=== PATIENT | female | born 1990 | race Caucasian/White ===

== ENCOUNTER → 2020-05-19 | Outpatient (CLI) | payer MEDICAID ==
[~2020-05-19] MED LIST: ADMELOG SO100 UNIT/1 SQ; ASPIRIN 81M81 MG/TA2 PO; CALCIUM CARBON650 M2; INSHUMULINN SQ; MOTRIN 800800 MG/TAB PO; PRENATAL MVI; VALTREX 50500 MG/TAB PO
== END ==
LOC: DIA.ED
DX: O24.419 Gestational diabetes mellitus in pregnancy, unspecified control (principal); Z79.4 Long term (current) use of insulin
CPT/HCPCS: G0108

== ENCOUNTER → 2020-06-22 | Outpatient (CLI) | payer MEDICAID | LOC: ZCOL.LAB 08:48 | DX: Z20.822 Contact with and (suspected) exposure to COVID-19 (principal) ==

== ENCOUNTER 2020-06-24 07:15 | Inpatient (IN) | payer MEDICAID ==
[2020-06-24] VITALS (42 sets, daily range): BP systolic 96–147; BP diastolic 51–733; PULSE 74–111; TEMP 97.4–98.7
[~2020-06-24] VITALS: Ht 167.6 cm; Wt 112.7 kg
--- NOTE | 2020-06-24 07:25 | NUR ---
0725- 39.0, G1L0 arrives on unit for scheduled IOL. Ambulatory to LDR5 with significant other. Oriented to room and plan of care. Patient denies any LOF, or VB. Reports normal movement, and irregular contractions. Changes into clean gown. 0740- This RN to bedside. Patient states she has not taken her insulin today. Per Dr. Dougherty, patient to take home insulin as directed. FSBS per patient 135. EFM explained and placed. VS obtained. Assessment completed. Consent forms explained and signed. 0745- IV to left forearm. Routine labs obtained via IV site. IVF infusing. 0753- Dr. Dougherty to bedside and discusses POC with patient and SO. AROM at this by Dr. Dougherty. No fluid noted with exam. Will continue to monitor. SVE by provider /3. Camila care and patient wedge left. 0810- Pitocin explained and started at 2mu per orders.
[2020-06-24 08:05] LABS: BASO % 0.2 % (0.0-2.0); EOS % 0.3 % (0-4.0); GRAN # 12.1 (1.4-6.5); GRAN % 77.1 % (42.2-75.2); HEMATOCRIT 41.4 % (37.0-47.0); HEMOGLOBIN 13.5 g/dl (12.5-16.0); LYMPH # 2.4 (1.2-3.4); LYMPH % 15.5 % (20.0-51.0); MEAN CELL VOLUME 89 fl (80.0-100.0); MEAN CORPUSCULAR HEMOGLOBIN 29 pg (27.0-31.0); MEAN CORPUSCULAR HGB CONC 33 g/dl (33.0-37.0); MEAN PLATELET VOLUME 11.9 fl (7.4-10.4); MONO # 0.9 (0.1-0.6); PLATELET COUNT 330 K/mm3 (130-400); RED BLOOD COUNT 4.67 M/mm3 (4.10-5.30); REDCELL DISTRIBUTION WIDTH-CV 15.2 % (11.5-14.5)
[2020-06-24] MEDS ORDERED: CALCIUM CARBON650 M2 (08:29)
[2020-06-24] MEDS ORDERED: ASPIRIN 81M81 MG/TA2 PO (08:29)
[2020-06-24] MEDS ORDERED: PRENATAL MVI (08:30)
[2020-06-24] MEDS ORDERED: VALTREX 50500 MG/TAB PO (08:30)
[2020-06-24] MEDS ORDERED: ADMELOG SO100 UNIT/1 SQ ×2 (08:31→08:32)
[2020-06-24] MEDS ORDERED: INSHUMULINN SQ ×2 (08:33→08:34)
--- NOTE | 2020-06-24 10:00 | NUR ---
1000- Patient requesting epidural. IVF bolus initiated. Delmer Jovel [employer] on unit and notified. 1005- C. Med [employer] to bedside for epidural placement. Patient assisted to edge of bed. FHR difficult to trace due to maternal position and habitus. RN remains at bedside adj. EFM. 1016- Epidural placed and test dose at this time by [employer]. See anesthesia record. 1021- Patient wedge left. EFM adjusted and tracing well. Plan of care and safety precautions reviewed with patient who verbalizes understanding. FSBS 65. Patient reports LÓPEZ, and states she feels like her blood sugar is low. Popcicle provided. 1030- Blood pressure noted to be 97/53, and 96/51. IVF bolus continues. 1043- Dr. Dougherty updated on patient. See physician notification.
--- NOTE | 2020-06-24 11:45 | NUR ---
Ctx tracing intermittently. RN at bedside adj. toco.
--- NOTE | 2020-06-24 13:40 | NUR ---
Patient reports lower abdominal pain/pressure. C. Med TURF FARMER to bedside to evaluate. See anesthesia record.
--- NOTE | 2020-06-24 13:45 | NUR ---
Ctx tracing intermittently, RN at bedside adj. toco.
--- NOTE | 2020-06-24 14:34 | NUR ---
1434- Patient reports increased pressure and urge to push. SVE C/0. Dr. Dougherty updated. See physician notification. RN remains at bedside with patient. 1444- Dr. Dougherty to bedside. Patiet prepped for delivery. Patient instructed on pushing with contractions. 1454- Spontaneous vaginal delivery of viable female . Cord clamped x2 and cut by father of . To mother's chest where dried and stimulated. Care of assumed by Nieves Sepulveda RN. Pitocin paused. 1457- Spontaneous and intact delivery of placenta. Pitocin resumed at 333ml/hr. 2nd degree perineal laceration repaired by Dr. Dougherty. Camila care provided pads changed, and ice pack to perineum. 1500- Fundus firm, midline, and bleeding minimal. Plan of care and safety precautions reviewed with patient and spouse who verbalize understanding. See doctor dictation, anesthesia record, and nurses notes.
--- NOTE | 2020-06-24 17:54 | NUR ---
FHR tracing intermittently due to maternal habitus and pushing efforts. This RN at bedside adj. EFM. Dr. Dougherty at bedside pushing with patient.
[2020-06-25] VITALS: BP 114/72; PULSE 80; TEMP 99
--- NOTE | 2020-06-25 06:39 | NUR ---
BEDSIDE REPORT REFUSED. REPORT RECEIVED FROM OFF GOING RN, RAUL Arguelles. CARE TAKEN OVER BY THIS RN.
[2020-06-25] MEDS ORDERED: MOTRIN 800800 MG/TAB PO (08:05)
[2020-06-25 08:08] VITALS: BP 125/76; PULSE 97; TEMP 98.5
--- NOTE | 2020-06-25 09:08 | NUR ---
Initial visit; Patient thanked Trucksmith for offering congratulations and God's blessings for the of her daughter. Trucksmith thanked family for choosing [facility].
--- NOTE | 2020-06-25 11:10 | NUR ---
PATIENT C/O FEELING LIKE HER BLOOD SUGAR WAS LOW. BLOOD GLUCOSE CHECKED AND NOTED TO BE 63. ORANGE JUICE PROVIDED AND ENCOURAGED PATIENT TO DRINK, ALSO ENCOURAGED TO ORDER LUNCH. UNDERSTANDING VERBALIZED.
[2020-06-25 16:49] VITALS: BP 115/74; PULSE 85; TEMP 97.5
== END 2020-06-25 18:05 | disposition home or self-care (01) | DRG 807 ==
LOC: OB 07:15 → LDR 07:15 → OB 08:56
PROVIDERS: ADMIT Obstetrics & Gynecology
PROC: 10E0XZZ Delivery of Products of Conception, External Approach (ICD-10-PCS; principal; 2020-06-24)
PROC: 0KQM0ZZ Repair Perineum Muscle, Open Approach (ICD-10-PCS; 2020-06-24)
PROC: 10907ZC Drainage of Amniotic Fluid, Therapeutic from Products of Conception, Via Natural or Artificial Opening (ICD-10-PCS; 2020-06-24)
DX: O24.424 Gestational diabetes mellitus in childbirth, insulin controlled (principal); Z37.0 Single live birth; O99.334 Smoking (tobacco) complicating childbirth; F17.200 Nicotine dependence, unspecified, uncomplicated; O70.1 Second degree perineal laceration during delivery; Z3A.39 39 weeks gestation of pregnancy
CPT/HCPCS: J2590; J2795; J7030; J7120

== ENCOUNTER → 2021-08-01 | Outpatient (CLI) | payer MEDICAID | LOC: DIA.ED 08:10 → DIA.EDTELE 08:14 → DIA.ED 10:30 | DX: O24.419 Gestational diabetes mellitus in pregnancy, unspecified control (principal); Z79.4 Long term (current) use of insulin | CPT/HCPCS: G0108 ==

== ENCOUNTER → 2021-08-29 | Outpatient (CLI) | payer MEDICAID | LOC: DIA.EDTELE 10:47 | DX: O24.419 Gestational diabetes mellitus in pregnancy, unspecified control (principal); Z3A.00 Weeks of gestation of pregnancy not specified | CPT/HCPCS: G0108 ==

== ENCOUNTER → 2021-09-04 | Outpatient (CLI) | payer MEDICAID ==
[~2021-09-04] VITALS: Ht 165.1 cm; Wt 100.9 kg
[2021-09-04 21:00] VITALS: TEMP 98.3
[2021-09-04 21:15] VITALS: BP 120/69; PULSE 86; TEMP 98.4
== END ==
LOC: LDRO 20:45
DX: Z34.90 Encounter for supervision of normal pregnancy, unspecified, unspecified trimester (principal); Z3A.00 Weeks of gestation of pregnancy not specified

== ENCOUNTER 2021-09-22 06:24 | Inpatient (IN) | payer MEDICAID ==
[~2021-09-22] VITALS: Ht 167.6 cm; Wt 100.0 kg
[2021-09-22] VITALS (17 sets, daily range): BP systolic 97–147; BP diastolic 52–85; PULSE 66–109; TEMP 97.6–98.1
--- NOTE | 2021-09-22 06:35 | NUR ---
0635 PATIENT ARRIVED ON UNIT. CHANGED INTO GOWN. 0643 PATIENT PLACED IN EXTERNAL MONITORS. 0655 IV PLACED AND BLOOD DRAWN
--- NOTE | 2021-09-22 07:15 | NUR ---
0701 PATIENT UP TO BATHROOM. PLACED BACK ON EF AT 0711. MOMENT OF DIFFICULT TRACING. RN AT BEDSIDE.
[2021-09-22 07:19] LABS: BASO % 0.3 % (0.0-2.0); EOS # 0.1 K/mm3 (0.0-0.7); EOS % 0.4 % (0.0-4.0); GRAN # 11.5 K/mm3 (1.4-6.5); HEMATOCRIT 37.3 % (37.0-47.0); HEMOGLOBIN 12.2 g/dl (12.5-16.0); LYMPH # 3.1 K/mm3 (1.2-3.4); LYMPH % 19.6 % (20.0-51.0); MEAN CELL VOLUME 90 fl (80.0-100.0); MEAN CORPUSCULAR HEMOGLOBIN 29 pg (27-31); MEAN CORPUSCULAR HGB CONC 33 g/dl (33.0-37.0); MEAN PLATELET VOLUME 12.2 fl (7.4-10.4); MONO # 1.1 K/mm3 (0.1-0.6); MONO % 6.6 % (1.7-9.3); PLATELET COUNT 270 K/mm3 (130-400); RED BLOOD COUNT 4.16 M/mm3 (4.10-5.30)
--- NOTE | 2021-09-22 07:30 | NUR ---
PATIENT TAKING OWN BLOOD GLUCOSE WITH DEVICE FROM HOME. BG OF 107 AT 0730
[2021-09-22] MEDS ORDERED: PRENATAL TABLET PO (07:54)
--- NOTE | 2021-09-22 08:00 | NUR ---
0758 PATIENT UP TO USE RESTROOM.
--- NOTE | 2021-09-22 08:15 | NUR ---
0807 MD AT BEDSIDE FOR PLAN OF CARE AND AROM. 0809 AROM CLEARS, SMALL AMOUNT, NO ODOR
--- NOTE | 2021-09-22 08:55 | NUR ---
[id number] PATIENT IN BATHROOM ATTEMPTING BM, ENCOURAGE NOT TO STRAIN.
--- NOTE | 2021-09-22 09:00 | NUR ---
0900 PATIENT REQUESTING EPIDURAL, ANESTHESIA CALLED TO BEDSIDE.
--- NOTE | 2021-09-22 09:30 | NUR ---
0920 HANDY MAN AT BEDSIDE FOR EPIDURAL. PATIENT POSITIONED ON SIDE OF THE BED. 0922 PIT TURNED OFF AND BABY OFF MONITOR DURING EPIDURAL.
--- NOTE | 2021-09-22 09:45 | NUR ---
0931 TEST DOSE DONE BY RELIGIOUS HEALER 0933 BOLUS DOSE BY RELIGIOUS HEALER 0940 PATIENT LAID BACK FROM EPIDURAL TILTED ON HER LEFT SIDE AND PLACED BACK ON EFM. PATIENT TOLERATED EPIDURAL WELL. 0943 PIT RESUMED
--- NOTE | 2021-09-22 10:15 | NUR ---
1003 ANESTHESIA AT BEDSIDE TO SEE IF PAIN IS UNDER CONTROL. 1004 PRIMARY RNS AND CHARGE NURSE AT BEDSIDE, PATIENT TURNED ON RIGHT SIDE DURING PROLONGED DECELERATION. 1007 PATIENT TURNED SUPINE FOR SVE WELL FSE PLACEMENT. 1008 MD CALLED AND NOTIFED OF SVE AND ON THE WAY. PATIENT PLACED ON LEFT SIDE. 1010 ANESTHESIA REDOSED PATIENT FOR FURTHER PAIN MANGEMENT 1014 PIT TURNED OFF AWAITING MD.
--- NOTE | 2021-09-22 10:22 | NUR ---
1016 RNS AT BEDSIDE MONITORING PATIENT. 1020 MD AT BEDSIDE. PATIENT PLACED IN STIRRUPS PREPPED FOR DELIVERY. 1021 PATIENT 1ST PUSH. COACHED ON HOLDING LEGS BACK, TAKING A DEEP BREATH AND BEAR DOWN. 1022 HEAD DELIVERED WITH NUCAL CORD X1. REDUCED BY MD AND REMAINDER OF BABY DELIVERED. RUPTURED CORD REPORTED BY MD, CORD CLAMP PLACED BY CHARGE NURSE AND MD CUT REMAINING CORD. BABY PLACE ON MATERNAL CHEST. 1026 PLACENTA DELIVERED SPONTANEOUSLY BY MD, PIT BOLUS STARTED AT 333 MEQ PER UNIT PER PROTOCOL.
--- NOTE | 2021-09-22 10:26 | NUR ---
1026 RED ALECIA WITH 150 ML OUTPUT COMPLETED BY . EBL OF 200 ML PER .
--- NOTE | 2021-09-22 13:12 | NUR ---
Per patient request, diet order changed to carb controlled.
--- NOTE | 2021-09-22 18:30 | NUR ---
Report recieved. Resting in room, feeding infant. Updated whiteboard and reviewed POC. Reports she would like to walk to the vending machine after she eats her dinner.
--- NOTE | 2021-09-22 19:15 | NUR ---
Infant to nsy per request. Support person and pt to walk to vending machine and court yard at this time. Instructed to stay on hospital property.
--- NOTE | 2021-09-22 20:10 | NUR ---
Returned to unit at this time with a sandwich, chips, a mountain dew, and other snack. Requested infant be returned to room.
[2021-09-23 00:30] VITALS: BP 104/58; PULSE 68; TEMP 98
[2021-09-23 04:45] VITALS: BP 119/68; PULSE 79; TEMP 97.6
[2021-09-23 06:58] VITALS: BP 109/71; PULSE 76; TEMP 98
[2021-09-23] MEDS ORDERED: MOTRIN 800800 MG/TAB PO (08:05)
--- NOTE | 2021-09-23 09:41 | NUR ---
Initial visit; Patient thanked Vocational Ed Instructor for looking in on her and daughter and offering congratulations and God's blessings for their family.
[2021-09-23 16:30] VITALS: BP 122/76; PULSE 83; TEMP 98
[2021-09-23 20:00] VITALS: BP 120/76; PULSE 77; TEMP 97.5
[2021-09-24 08:16] VITALS: BP 118/73; PULSE 74; TEMP 97.9
== END 2021-09-24 09:45 | disposition home or self-care (01) | DRG 806 ==
LOC: OB 06:24 → LDR 06:24 → OB 13:01
PROVIDERS: ADMIT Obstetrics & Gynecology
PROC: 10E0XZZ Delivery of Products of Conception, External Approach (ICD-10-PCS; principal; 2021-09-22)
PROC: 10907ZC Drainage of Amniotic Fluid, Therapeutic from Products of Conception, Via Natural or Artificial Opening (ICD-10-PCS; 2021-09-22)
DX: O24.424 Gestational diabetes mellitus in childbirth, insulin controlled (principal); O98.32 Other infections with a predominantly sexual mode of transmission complicating childbirth; Z37.0 Single live birth; O99.824 Streptococcus B carrier state complicating childbirth; A60.09 Herpesviral infection of other urogenital tract; O99.214 Obesity complicating childbirth; O69.81X0 Labor and delivery complicated by cord around neck, without compression, not applicable or unspecified; O99.334 Smoking (tobacco) complicating childbirth; Z3A.39 39 weeks gestation of pregnancy
CPT/HCPCS: J2540; J2590; J2795; J7120

== ENCOUNTER 2021-09-30 18:06 | Emergency (ER) | payer MEDICAID ==
[~2021-09-30] VITALS: Ht 165.1 cm; Wt 91.4 kg
[~2021-09-30 18:06] MED LIST changes: +PRENATAL TABLET PO
[2021-09-30 18:17] VITALS: TEMP 98
[2021-09-30 18:56] LABS: COLLECTION METHOD CLEAN CATCH
[2021-09-30 19:00] LABS: BASO % 0.2 % (0.0-2.0); EOS # 0.1 K/mm3 (0.0-0.7); EOS % 0.7 % (0.0-4.0); GRAN # 6.5 K/mm3 (1.4-6.5); GRAN % 66.1 % (42.2-75.2); HEMATOCRIT 43.8 % (37.0-47.0); HEMOGLOBIN 14.6 g/dl (12.5-16.0); LYMPH # 2.6 K/mm3 (1.2-3.4); LYMPH % 26.1 % (20.0-51.0); MEAN CELL VOLUME 89 fl (80.0-100.0); MEAN CORPUSCULAR HEMOGLOBIN 30 pg (27-31); MEAN CORPUSCULAR HGB CONC 33 g/dl (33.0-37.0); MEAN PLATELET VOLUME 10.7 fl (7.4-10.4); MONO # 0.6 K/mm3 (0.1-0.6); MONO % 6.4 % (1.7-9.3); PLATELET COUNT 346 K/mm3 (130-400); RED BLOOD COUNT 4.95 M/mm3 (4.10-5.30); REDCELL DISTRIBUTION WIDTH-CV 13.2 % (11.5-14.5)
[2021-09-30 19:06] LABS: PH 7 (5-8); SQUAMOUS EPITHELIAL 0-2 /hpf (0-10); URINE APPEARANCE Clear (CLEAR/HAZY); URINE BACTERIA Rare /hpf (NONE SEEN); URINE BILIRUBIN Negative (NEGATIVE); URINE BLOOD 3+ (NEGATIVE); URINE COLOR Straw (YELLOW); URINE GLUCOSE Negative (NEGATIVE); URINE KETONE Negative (NEGATIVE); URINE LEUKOCYTE ESTERASE Trace (NEGATIVE); URINE NITRATE Negative (NEGATIVE); URINE PROTEIN(semi-quant) Negative (NEGATIVE); URINE UROBILINOGEN Negative (NEGATIVE)
[2021-09-30 19:22] LABS: ALBUMIN 3.5 gm/dL (3.5-5.0); BILIRUBIN,TOTAL 0.3 mg/dL (0.2-1.2); CALCIUM 9.7 mg/dL (8.4-10.2); CREATININE, serum 0.7 mg/dL (0.57-1.11); POTASSIUM 3.8 mmol/L (3.5-4.5); TOTAL PROTEIN 7.6 gm/dL (6.2-8.1)
[2021-09-30 20:25] VITALS: BP 135/85; PULSE 73
== END 2021-09-30 20:25 | disposition home or self-care (01) ==
LOC: COL.ER 18:06
PROVIDERS: Physician Assistant
DX: O72.1 Other immediate postpartum hemorrhage (principal); F17.200 Nicotine dependence, unspecified, uncomplicated; Z91.040 Latex allergy status